=== PATIENT | female | born 1960 | race Caucasian/White ===

== ENCOUNTER → 2021-03-15 | Outpatient (CLI) | payer OTHER ==
[2021-03-15 09:05] LABS: BASO # 0.1 x10^3/uL (0.0-0.2); BASO % 1 % (0-3); EOS # 0.1 x10^3/uL (0.0-0.7); EOS % 2 % (0-3); HEMATOCRIT 42.2 % (36.0-47.0); LYMPH # 1.1 x10^3/uL (1.0-4.8); LYMPH % 16 % (24-48); MEAN CORPUSCULAR HEMOGLOBIN 29 pg (25-35); MEAN CORPUSCULAR HGB CONC 33 g/dL (31-37); MEAN CORPUSCULAR VOLUME 88 fL (79-100); MONO # 0.6 x10^3/uL (0.0-1.1); MONO % 9 % (0-9); NEUT % 73 % (31-73); PLATELET COUNT 325 x10^3/uL (140-400); RED BLOOD COUNT 4.82 x10^6/uL (3.50-5.40); RED CELL DISTRIBUTION WIDTH 14.7 % (11.5-14.5); WHITE BLOOD COUNT 6.8 x10^3/uL (4.0-11.0)
[2021-03-15 09:16] LABS: PROTHROMBIN TIME PATIENT 11.8 SEC (11.7-14.0)
[2021-03-15 09:22] LABS: ALBUMIN 3.7 g/dL (3.4-5.0); CALCIUM 9.4 mg/dL (8.5-10.1); CREATININE 0.8 mg/dL (0.6-1.0); GFR 72.9; POTASSIUM 4.8 mmol/L (3.5-5.1)
--- NOTE | 2021-03-15 11:49 | EKG ---
[facility] [address] [place] [address] Test Date: 2021-03-15 Test Time: 11:51:23 Pat Name: KYMBERLY CROWE Department: Room: Gender: F Stock Handler Floorperson: URBANO : 1960 Requested By: JYOTI BECK Order Number: [id number] Reading MD: Reece Irving MD Measurements Intervals Orwell Rate: 72 P: 0 KS: 162 QRS: 48 QRSD: 86 T: 52 QT: 388 QTc: 426 Interpretive Statements SINUS RHYTHM Electronically Signed On 03-16-2021 11:44:11 CDT by Reece Irving MD
--- NOTE | 2021-03-15 13:38 | RAD ---
EXAM: CHEST 2 VIEWS. HISTORY: Hypertension, preoperative risk factors. COMPARISON: None. FINDINGS: Frontal and lateral views of the chest are obtained. There are no confluent infiltrates. There is no pneumothorax or pleural effusion. The heart is not en larged. Cholecystectomy clips are noted. IMPRESSION: 1. No confluent infiltrates. Electronically signed by: Henry Mccarty MD (03/15/2021 1:35 PM) [id number]
[2021-03-16 04:09] LABS: HEMOGLOBIN A1C 5.9 % (4.8-5.6)
== END ==
LOC: SURGPAT 12:29
PROVIDERS: ATTEND Orthopaedic Surgery
DX: Z01.818 Encounter for other preprocedural examination (principal); M16.12 Unilateral primary osteoarthritis, left hip; Z90.49 Acquired absence of other specified parts of digestive tract
CPT/HCPCS: 36415; 71046; 80048; 82040; 82306; 83036; 85025; 85610; 85651; 85730; 87641; 93005

== ENCOUNTER → 2021-03-26 | Outpatient (CLI) | payer OTHER ==
[~2021-03-26] MED LIST: CHOL10004 PO; IBUP200T58 PO; LISI1TAB37 PO; MULT-766 PO; TRAM50TA PO; WARF3TAB50 PO; ZINC50TA39 PO
== END ==
LOC: LAB 12:42
PROVIDERS: ATTEND Orthopaedic Surgery
DX: Z01.812 Encounter for preprocedural laboratory examination (principal); Z20.822 Contact with and (suspected) exposure to COVID-19
CPT/HCPCS: U0003; U0005

== ENCOUNTER 2021-03-30 06:07 | Observation (INO) | payer OTHER ==
[2021-03-18 07:59] VITALS: BP 134/78
[2021-03-18 08:06] VITALS: BP 134/78
[~2021-03-30] VITALS: Ht 162.6 cm; Wt 93.6 kg
[2021-03-30] VITALS (9 sets, daily range): BP systolic 88–117; BP diastolic 52–71
[~2021-03-30 06:07] MED LIST changes: +ACETAMINOPHEN 500 MG TABLET PO PRN; +GABAPENTIN 300 MG CAPSULE. PO ONE; +MELOXICAM 7.5 MG TABLET PO ONE; -TRAM50TA PO; +TRANEXAMIC ACID in NS IVPB 50 ML INJ ONE; -WARF3TAB50 PO
[2021-03-30] MEDS ORDERED: DEXAMETHASONE SOD PHOS 4 MG/ML VIAL ONE (06:14)
[2021-03-30] MEDS ORDERED: ONDANSETRON PF 4 MG/2 ML VIAL. ONE (06:14)
[2021-03-30] MEDS ORDERED: PROPOFOL 10 MG/ML (20ML) VIAL. IV ONE (06:14)
[2021-03-30] MEDS ORDERED: LIDOCAINE 2% PF 5 ML VIAL. ONE (06:14)
[2021-03-30] MEDS ORDERED: ROCURONIUM 50 MG/5 ML VIAL. ONE (06:14)
[2021-03-30] MEDS ORDERED: fentaNYL PF VIAL 250 MCG/5 ML VIAL ONE (06:55)
[2021-03-30] MEDS ORDERED: TRANEXAMIC ACID in NS IVPB 100 ML ONE (06:57)
[2021-03-30] MEDS ORDERED: MIDAZOLAM HCL/PF 2 MG/2 ML VIAL. ONE (06:58)
[2021-03-30] MEDS ORDERED: SCOPOLAMINE 1.5MG PATCH. TD ONE (07:00)
[2021-03-30 07:09] LABS: PROTHROMBIN TIME PATIENT 12.3 SEC (11.7-14.0)
[2021-03-30] MEDS ORDERED: PHENYLEPHRINE in 0.9% NACL PF 1 MG/10 ML SYRINGE. IV ONE (07:58)
[2021-03-30] MEDS ORDERED: SEVOFLURANE 61 TO 120 MINUTES. IH ONE (07:58)
[2021-03-30] MEDS ORDERED: DEXTROSE 50% 25 GM / 50ML DISP.SYRIN. IV PRN (08:00)
[2021-03-30] MEDS ORDERED: MORPHINE SULFATE 2 MG/ML INJ. IVP PRN (08:00)
[2021-03-30] MEDS ORDERED: CALCIUM CARBONATE 500 MG TAB.CHEW PO PRN (08:00)
[2021-03-30] MEDS ORDERED: PROCHLORPERAZINE 5 MG TABLET. PO PRN (08:00)
[2021-03-30] MEDS ORDERED: fentaNYL PF VIAL 100 MCG/2 ML VIAL IVP PRN (08:00)
[2021-03-30] MEDS ORDERED: oxyCODONE IR 5 MG TABLET PO PRN (08:00)
[2021-03-30] MEDS ORDERED: IV NORMAL SALINE 1000ML BAG 1,000 ML IV SCH (08:00)
[2021-03-30] MEDS ORDERED: TRANEXAMIC ACID in NS IVPB 50 ML INJ ONE (08:00)
[2021-03-30] MEDS ORDERED: 0.9 % SODIUM CHLORIDE 10 ML DISP.SYRIN. IV PRN (08:00)
[2021-03-30] MEDS ORDERED: diphenhydrAMINE 50 MG/ML VIAL IVP PRN (08:00)
[2021-03-30] MEDS: FERROUS SULFATE 325 MG TABLET. PO SCH ×2 (08:00→18:23)
[2021-03-30] MEDS ORDERED: ZOLPIDEM 5 MG TABLET. PO PRN (08:00)
--- NOTE | 2021-03-30 08:02 | HP ---
DATE OF SERVICE: 03/30/2021 ADMIT DATE: 03/30/2021 INITIAL HISTORY AND PHYSICAL CHIEF COMPLAINT: Left hip pain and degenerative joint disease. HISTORY OF PRESENT ILLNESS: The patient is a 60-year-old otherwise healthy female with left hip, groin area pain going on for a few years, progressively severely worse since about May of last year and severely affecting her activities of daily living. She cannot bend over to tie her shoes, is having a lot of difficulty with startup pain and with walking and desires to remain very active and we discussed definitive treatment in the clinic. PAST MEDICAL HISTORY: Significant for hypertension. PAST SURGICAL HISTORY: Cholecystectomy. FAMILY HISTORY: Her father dying from a stroke. SOCIAL HISTORY: She denies smoking, alcohol or drug use. MEDICATIONS: Include: Lisinopril, hydrochlorothiazide, triamcinolone cream topically, vitamin D and multivitamin. ALLERGIES: She has no known drug allergies. REVIEW OF SYSTEMS: Negative for any chest pain, shortness of breath, recent febrile illness or other constitutional symptoms. PHYSICAL EXAMINATION: VITAL SIGNS: Per admission sheet. HEENT: Atraumatic, normocephalic. HEART: Regular rate and rhythm. LUNGS: Clear to auscultation bilaterally. ABDOMEN: Benign. EXTREMITIES: Examination of the left hip, she is very tender at her already decreased range of motion on the left hip extremes compared to minimal discomfort on the right. No tenderness over the trochanteric bursa on either side. Negative straight leg raise either side. Normal alignment, stability, bilateral knees and ankles with intact motor function, distal pulses, sensation, reflexes, skin in both lower extremities throughout. LABORATORY DATA: X-rays show bone on bone degenerative change and sclerosis of the left hip with flattening of the left femoral head. IMPRESSION: Osteoarthritis, left hip. TREATMENT PLAN: I had gone over with her risks, benefits, postoperative course of total hip arthroplasty including the possibility of infection, leg length inequality, premature wear or loosening, instability, nerve or blood vessel damage, medical or other anesthetic complications among others. All her questions were answered. She wishes to proceed with surgical evaluation and treatment, which will occur today with [facility] observation to follow. SKYLER DR: Daquan TID: [id number]
[2021-03-30] MEDS ORDERED: VANCOMYCIN 1 GM VIAL. ONE (08:03)
[2021-03-30] MEDS: MORPHINE SULFATE 5 MG, KETOROLAC 30MG VIAL 30 MG, ROPIVacaine 0.5% PF 60 ML, EPINEPHrin... INT ART ONE ×2 (08:31→09:51)
[2021-03-30] MEDS ORDERED: NEOSTIGMINE METHYLSULFATE 5 MG/5 ML SYRINGE. ONE (08:38)
[2021-03-30] MEDS ORDERED: HYDROmorphone 2 MG/ML VIAL ONE (08:38)
[2021-03-30] MEDS ORDERED: GLYCOPYRROLATE 1 MG/5 ML VIAL. ONE (08:39)
[2021-03-30] MEDS: MULTIVITAMIN with MINERAL TABLET. PO SCH (09:00)
[2021-03-30] MEDS ORDERED: KETAMINE HCL IN NACL, ISO-OSM 50 MG/5 ML SYRINGE ONE (09:07)
[2021-03-30] MEDS: SENNOSIDES/DOCUSATE 8.6/50MG TABLET. PO SCH (11:00)
--- NOTE | 2021-03-30 11:07 | NUR ---
Arrived to unit by bed from PACU. Awakens easily. No c/o at this time. Took sips water without difficulty. IVF's intact and infusing. O2 at 2l per n/c. TEDs and SCD's on bilaterally. Oriented to room and control. Side rails up x's 2 with call light in reach. Spouse at bedside. Continue to monitor.
[2021-03-30] MEDS: ONDANSETRON PF 4 MG/2 ML VIAL. IVP SCH ×3 (11:27→22:46)
[2021-03-30] MEDS: hydroCHLOROthiazide 12.5 MG CAPSULE PO SCH (11:45)
[2021-03-30] MEDS: LISINOPRIL 20 MG TABLET PO SCH (11:45)
--- NOTE | 2021-03-30 11:55 | RAD ---
EXAM: Pelvis and left hip, 3 views. HISTORY: Pain. COMPARISON: None. FINDINGS: A frontal view the pelvis and 2 views of the left hip are obtained. There is a left hip art hroplasty in expected position. There is surrounding soft tissue gas due to recent surgery. There is marginal spurring involving the right femoral head, not formally assessed on this exam. IMPRESSION: Left hip arthroplasty in expected position. Electronically signed by: Alisha Quick MD (03/30/2021 11:52 AM) [id number]
[2021-03-30] MEDS ORDERED: ONDANSETRON ODT 4 MG TAB.RAPDIS. PO PRN (12:00)
--- NOTE | 2021-03-30 14:49 | PDOC4 ---
Operative Note Operative Note Date of surgery: 03/30/2021 Preoperative diagnosis: Degenerative joint disease left hip Postoperative diagnosis: Same Operative procedure: Left total hip arthroplasty with posterior approach Surgeon Reese [employer] Assessment Specialist: Poncho campbell Anesthesia: General Estimated blood loss: 250 cc Complications: None Specimens: Femoral head to pathology Drains: None Operative indications: Please see my orthopedic clinic note and dictated history and physical for detailed operative indications and note that we covered risks benefits postoperative course of the procedure. We talked through the possibility of infection nerve or blood vessel damage leg length inequality instability premature wear or loosening medical or other anesthetic complications among others all her questions were answered and she wishes to proceed with surgical evaluation and treatment having given informed consent. Operative text: Patient was identified procedure verified patient placed in the lateral decubitus position with the Stulberg hip positioner after adequate amounts of general anesthesia were administered. All bony prominences were well-padded and left hip was prepped and draped in the standard sterile fashion. After timeout was performed patient procedure identified and verified an incision was made curvilinear centered over the greater trochanter and the iliotibial band and gluteal fascia were split in line with their fibers a Charnley retractor was placed external rotators were released from their insertion and hip capsule was split in a T fashion the hip was dislocated and femoral neck cut was made with a reference Avenir broach. The acetabulum was exposed contents of the fovea were removed as well as any residual labrum and reaming carried out up to a size 55 mm and excess osteophytes were removed with an osteotome and rongeur. Excellent bleeding surface was noted and a 56 mm Biomet G7 acetabular shell was impacted into place in proper version and a 40 mm vitamin E neutral liner was impacted. The femur was then exposed box osteotome was used along with the rattail rasp and successive size broaching up to a size 6 which provided excellent stability and fit within the canal. Calcar reaming was carried out and trial fitting with a +7 40 mm head to reproduce leg length and offset appropriately. Excellent stability was noted to about 75 degrees internal rotation at 90 degrees hip flexion. Trial components were removed and a size 4 standard offset collared Avenir stem was impacted into place with a +7 ceramic 40 mm head. Excellent stability and range of motion were noted and leg length reproduced according to measurements from the contralateral side to the extent possible as she lacked extension with any further lengthening. Thorough irrigation carried out with normal saline solution and pulse lavage. Intra- articular mixture was injected subperiosteally throughout the joint capsule and subcutaneous areas. 1 g vancomycin was placed in the incision and fascia was closed with #1 PDS strata fix suture in a running fashion subcutaneous closure with buried Vicryl skin closure with subcuticular Monocryl and a supriya dressing was applied. Patient was returned to recovery room in stable condition having tolerated the procedure well. Poncho campbell was present for the procedure and assisted in the patient positioning prepping draping retraction closure and dressings JYOTI BEKC MD Mar 30, 2021 14:49
[2021-03-30] MEDS ORDERED: WARFARIN 7.5 MG TABLET. PO ONE (16:00)
--- NOTE | 2021-03-30 19:21 | NUR ---
Pt arrived about 1100 today and has not void. Attempted three times in last 8 hours. Bladder scanned got 471 to 301ml. Straight cath and got 200cc of yellow urine to d/d. Encouraged to continue to increase po intake and receiving IVF's. Cont. monitor.
[2021-03-31 03:05] VITALS: BP 96/54
[2021-03-31] MEDS: ONDANSETRON PF 4 MG/2 ML VIAL. IVP SCH (05:02)
[2021-03-31] MEDS: GABAPENTIN 100 MG CAPSULE. PO SCH ×2 (05:02→12:46)
[2021-03-31] MEDS: traMADol 50 MG TABLET PO SCH ×2 (05:02→12:17)
[2021-03-31 05:04] VITALS: BP 97/52
[2021-03-31] MEDS ORDERED: MAGNESIUM HYDROXIDE 2,400 MG/30 ML ORAL.SUSP. PO PRN (06:00)
[2021-03-31 07:41] LABS: HEMATOCRIT 30.9 % (36.0-47.0); HEMOGLOBIN 10.3 g/dL (12.0-15.5)
[2021-03-31 07:52] LABS: PROTHROMBIN TIME PATIENT 14.9 SEC (11.7-14.0)
[2021-03-31] MEDS: MULTIVITAMIN with MINERAL TABLET. PO SCH (08:34)
[2021-03-31] MEDS: ACETAMINOPHEN 500 MG TABLET PO SCH ×2 (08:35→15:31)
[2021-03-31] MEDS: SENNOSIDES/DOCUSATE 8.6/50MG TABLET. PO SCH (08:36)
[2021-03-31] MEDS: FERROUS SULFATE 325 MG TABLET. PO SCH (08:37)
[2021-03-31] MEDS: hydroCHLOROthiazide 12.5 MG CAPSULE PO SCH (08:38)
[2021-03-31] MEDS: LISINOPRIL 20 MG TABLET PO SCH (08:38)
[2021-03-31] MEDS ORDERED: MELOXICAM 7.5 MG TABLET PO SCH (09:00)
[2021-03-31] MEDS ORDERED: NON FORMULARY ITEM (Lisinopril/Hydrochlorothiazide (Lisinopril-Hctz 20-12.5 Mg Tab) 1 TAB) PO SCH (09:00)
--- NOTE | 2021-03-31 10:07 | NUR ---
Pharmacy Warfarin Dosing Note S:Pharmacy consulted to assist with anticoagulation therapy started 03/30/21 with target INR: 1.6 - 2.5 O:KYMBERLY CROWE is a 60 year old F with JOHN LABS: Last INR: 1.2 Last HGB: 10.3 Last HCT: 30.9 Last PLT: -- Last dose of 7.5 mg given on 03/30/21 at 1825 Drug Interaction Changes: New Interacting Drug Ongoing Drug Interactions: Meloxicam A:INR of 1.2 is below desired range. Target range for this patient is: 1.6 - 2.5 P: Warfarin dose: 5 mg Today at 1600 Bridge Therapy: None Next INR due 04/01/21 Pharmacy anticoagulation service will continue to follow. NIELS NUR RPH, 03/31/21 1007
[2021-03-31] MEDS ORDERED: ONDANSETRON ODT 4 MG TAB.RAPDIS. PO PRN (12:00)
[2021-03-31] MEDS ORDERED: ONDANSETRON PF 4 MG/2 ML VIAL. IVP PRN (12:00)
[2021-03-31] MEDS ORDERED: BISACODYL 10 MG SUPP.RECT. PR PRN (16:00)
[2021-03-31] MEDS ORDERED: WARFARIN 5 MG TABLET. PO ONE (16:00)
[2021-03-31] MEDS ORDERED: WARF3TAB50 PO (16:14)
[2021-03-31] MEDS ORDERED: TRAM50TA PO (16:14)
--- NOTE | 2021-03-31 16:17 | DISCH ---
DISCHARGE INSTRUCTIONS Condition on Discharge Condition on Discharge: Stable Activity After Discharge Activity Instructions for Disc: Progressive ambulation Bathing Instructions: Shower-keep dressing dry Exercise Instruction after Dis: Exercise per therapy, Progress as tolerated Driving Instructions after Dis: Do not drive Weight Bearing Status after Di: As tolerated Diet after Discharge Diet after Discharge: Regular Liquid Texture: Thin Liquid Wound Incision Care Wound/Incision Care: Ice to area for comfort, Do not change dressing (Maintain edi dressing, call if saturated, when suction machine stops, discard and cut tail of dressing and tape over to maintain seal) Other wound/incision instructi: DO NOT remove EDI dressing. It remains in place till your appointment Community/Resources/Services Services at Discharge: Outpatient Therapy, PT EVALUATE & TREAT (Standard total hip precautions) Contacting the DR. after DC Call your doctor for: Concerns you may have Follow-Up Follow Up With: ANDRZEJ Tian on 04/16 at 9am in [place] [phone] Warfarin Follow-Up Warfarin Follow UP: [facility] to manage warfarin dosage and testing JYOTI BECK MD Mar 31, 2021 16:17
--- NOTE | 2021-03-31 17:22 | NUR ---
Patient left around 1715 with her . EDI dressing CDI at discharge and working properly. Outpatient therapy set up per planner scheduler. Discharge education addressed by this nurse, therapy, pharmacy, and Dr Leigh prior to discharge. Coumadin instructions and medication for at home use was given to the patient by pharmacy and readdressed by this nurse prior to dismissal. Patient refused pain medication at discharge. Tramadol sent to patients pharmacy per Dr Leigh. IVs discontinued without complications. No concerns noted at discharge.
--- NOTE | 2021-04-01 18:06 | PATHOLOGY ---
[facility] Accession Number: [id number] . 01 Material submitted: . hip - LEFT HIP BONE AND TISSUE. Modifiers: left . 01 Clinical history: . OSTEOARTHRITIS LEFT HIP ARTHROPLASTY POSTERIOR . 02 Diagnosis: Femoral head, left hip posterior arthroplasty: - Advanced degenerative arthritis. (JPM:[facility]; 04/01/2021) QTP 04/01/2021 1441 Local . 02 Electronically signed: . Randall Perera MD, Pathologist NPI- [id number] . 01 Gross description: . The specimen is received in formalin, labeled "Sonya Maddox, left hip bone and tissue". Received is a partial femoral head measuring 5.3 x 5.1 x 3.9 cm in greatest dimensions. The articular surface is smooth to irregular in contour with evidence of eburnation. The distal aspect of the specimen is hemorrhagic in appearance. Sectioning reveals yellow-covarrubias cut surfaces with no grossly distinct nodules or lesions. A community relations representative section of the eburnation is submitted in cassette A1, following decalcification. A community relations representative section through the distal aspect showing hemorrhage is submitted in cassette A2, following decalcification. ([facility]; 03/31/2021) QAC/QAC 03/31/2021 0832 Local . 02 Pathologist provided ICD-10: M16.12 . 02 CPT . 243605, [id number] Specimen Comment: A courtesy copy of this report has been sent to [phone] Specimen Comment: Report sent to Performed at: 01 [facility] [address], [place], [place] [id number] MD Lopez Sellers MD Phone: [phone] Performed at: 02 [facility] [address] [place], [place] [id number] MD Randall Perera MD Phone: [phone]
--- NOTE | 2021-04-05 08:34 | DS ---
DATE OF DISCHARGE: 03/31/2021 ORTHOPEDIC DISCHARGE SUMMARY DISPOSITION: Home with outpatient physical therapy. DISCHARGE MEDICATIONS: Include tramadol 50 mg p.o. q.4 hours p.r.n. pain, dispense #60; warfarin as directed by anticoagulation clinic for planned 4-week course; stop ibuprofen and continue medications of lisinopril, hydrochlorothiazide, cholecalciferol, multivitamin and zinc. DISCHARGE INSTRUCTIONS: Activity is weightbearing as tolerated, standard total hip precautions to include avoiding hip flexion past 90 degrees or any internal rotation. Maintain EDI dressing, call if saturated, otherwise approximately 1 week when suction machine stops remove and discard suction box, cut tail of dressing and tape over to maintain seal. Follow up Dr. Leigh or Mr. Tian 2 weeks postoperatively. BRIEF DESCRIPTION OF HOSPITAL COURSE: The patient underwent uneventful left total hip arthroplasty, got around well with physical therapy in terms of ambulation and transfers. Pain medication was well controlled on tramadol and she otherwise maintained good medical stability and was discharged home in stable condition. KATEY DR: Daquan TID: [id number]
--- NOTE | 2021-04-07 | NUR ---
Cefazolin started at 13:56 on 03/30/21--stop time 14:26 on 03/30/21 Cefazolin started at 21:00 on 03/30/21--stop time 21:30 on 03/30 Cefazolin started at 02:12 on 03/31--stop time 02:42 on 03/31
== END 2021-03-31 17:15 | disposition home or self-care (01) ==
LOC: SURG 06:07 → 4 SOUTHEST 07:50
PROVIDERS: ADMIT Orthopaedic Surgery; ATTEND Orthopaedic Surgery
DX: M16.12 Unilateral primary osteoarthritis, left hip (principal); I10 Essential (primary) hypertension; Z90.49 Acquired absence of other specified parts of digestive tract; Z79.899 Other long term (current) drug therapy
CPT/HCPCS: 27130; 36415; 73502; 85014; 85018; 85610; 85730; 86850; 86900; 86901; 88304; 88311; 96365; 96366; 96375; 97116; 97150; 97162; 97166; 97530; 97535; A4213; A4930; A6258; A6550; C1755; C1776; G0378; G0379; J0171; J0690; J1100; J1170; J1885; J2270; J2370; J2405; J2704; J2710; J2795; J3010; J3370; J3490; J2250